=== PATIENT | male | born 1960 | race Hispanic/Latino ===

== ENCOUNTER 2018-04-22 20:46 | Observation (INO) | payer SELFPAY ==
[~2018-04-22] VITALS: Ht 154.9 cm; Wt 65.9 kg
[~2018-04-22 20:46] MED LIST: ASPIR 8181 MG PO
[2018-04-22 21:16] LABS: BASOPHILS % 0.4 % (0.0-1.0); EOSINOPHILS # (AUTO) 0.2 (0.0-0.4); EOSINOPHILS % 1.8 % (0.0-6.0); HEMATOCRIT 45.1 % (38.2-49.6); HEMOGLOBIN 15.4 g/dL (14.0-18.0); LYMPHOCYTES % 28.6 % (18.0-39.1); MEAN CORPUSCULAR HGB CONC 34.1 g/dL (31-35); MEAN CORPUSCULAR VOLUME 87.7 fL (81-99); MONOCYTES # (AUTO) 0.7 (0.2-0.8); MONOCYTES % 6.9 % (4.4-11.3); NEUTROPHILS # (AUTO) 6.4 (2.1-6.9); NEUTROPHILS % 61.9 % (38.7-80.0); PLATELET COUNT 338 x10e3/uL (140-360); RED BLOOD COUNT 5.14 x10e6/uL (4.3-5.7); RED CELL DISTRIBUTION WIDTH 11.9 % (11.7-14.4)
[2018-04-22] MEDS ORDERED: PLAVIX75 MG PO (21:21)
[2018-04-22 21:27] LABS: INR 0.9
[2018-04-22 21:28] LABS: PARTIAL THROMBOPLASTIN TIME 28.7 seconds (23.8-35.5)
[2018-04-22 21:38] LABS: ALANINE AMINOTRANSFERASE 64 IU/L (0-55); ALBUMIN/GLOBULIN RATIO 0.9 (0.8-2.0); ALKALINE PHOSPHATASE 116 IU/L (40-150); ANION GAP 10.8 mmol/L (8-16); BLOOD UREA NITROGEN 18 mg/dL (7-26); BUN/CREATININE RATIO 19 (6-25); CALCIUM 9.8 mg/dL (8.4-10.2); CARBON DIOXIDE 29 mmol/L (22-29); CHLORIDE 102 mmol/L (98-107); CREATINE KINASE 56 IU/L (30-200); CREATININE, SERUM 0.93 mg/dL (0.72-1.25); EST GLOMERULAR FILTRATION RATE > 60 ML/MIN (60-); GLUCOSE 117 mg/dL (74-118); MAGNESIUM 2.1 MG/DL (1.3-2.1); POTASSIUM 3.8 mmol/L (3.5-5.1); SODIUM 138 mmol/L (136-145)
[2018-04-22 21:39] LABS: BILIRUBIN,URINE NEGATIVE (NEGATIVE); CLARITY,URINE CLEAR (CLEAR); COLOR,URINE YELLOW (YELLOW); KETONES,URINE NEGATIVE (NEGATIVE); LEUKOCYTE ESTERASE ,URINE NEGATIVE (NEGATIVE); NITRITE,URINE NEGATIVE (NEGATIVE); PROTEIN,URINE DIPSTICK NEGATIVE (NEGATIVE); URINE UROBILINOGEN 0.2 mg/dL (0.2 - 1)
[2018-04-22 21:47] LABS: BACTERIA,URINE FEW /HPF; EPITHELIAL CELLS,URINE RARE /LPF; RBC,URINE 0-5 /HPF (0-5)
--- NOTE | 2018-04-22 21:53 | Diagnostic Imaging Report ---
EXAMINATION: CHEST SINGLE (PORTABLE) INDICATION: Chest pain COMPARISON: None FINDINGS: TUBES and LINES: None. LUNGS: Lungs are not well inflated. Lungs are clear. There is no evidence of pneumonia or pulmonary edema. PLEURA: No pleural effusion or pneumothorax. HEART AND MEDIASTINUM: The cardiomediastinal silhouette is unremarkable. BONES AND SOFT TISSUES: No acute osseous lesion. Soft tissues are unremarkable. UPPER ABDOMEN: No free air under the diaphragm. IMPRESSION: No acute thoracic abnormality. Signed by: Dr. Grzegorz Hubbard M.D. on 04/22/2018 9:50 PM
--- NOTE | 2018-04-22 21:59 | Diagnostic Imaging Report ---
Examination: CT head without contrast Clinical Indication: Headache. Technique: Transaxial noncontrast images from the skull base through the vertex were obtained. Sagittal and coronal reformatted images were done. Dose modulation, iterative reconstruction, and/or weight based adjustment of the mA/kV was utilized to reduce the radiation dose to as low as reasonably achievable. Comparison: None. Findings: Scalp: No abnormalities. Bones: Intact. No fractures. No blastic or lytic lesions. Brain sulci: Appropriate for patient's age. Ventricles: Normal in size and configuration. No hydrocephalus. Extra-axial space: No abnormalities. Parenchyma: Small chronic cortical based infarct of the right middle frontal gyrus. No masses, hemorrhage, or acute cortical based vascular insults. Suprasellar region: No abnormalities. Craniocervical junction: The foramen magnum is patent. No Chiari one malformation. Incidental findings: Atherosclerotic calcification of the cavernous and supraclinoid internal carotid arteries. Impression: 1. No acute intracranial abnormality. 2. 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 Signed by: Dr. Lillian Costa M.D. on 04/22/2018 9:56 PM
[2018-04-22 22:21] LABS: AMPHETAMINES SCREEN,URINE NEGATIVE (NEGATIVE); BENZODIAZEPINES SCREEN,URINE NEGATIVE (NEGATIVE); PHENCYCLIDINE SCREEN,URINE NEGATIVE (NEGATIVE)
[2018-04-23] VITALS (8 sets, daily range): BP systolic 120–159; BP diastolic 62–80
[2018-04-23] MEDS ORDERED: NITROGLYCERIN 0.4 MG SUBL SL PRN
[2018-04-23] MEDS ORDERED: ONDANSETRON HCL INJ 2 MG/ML VIAL IV PRN
[2018-04-23] MEDS: FAMOTIDINE 20 MG/2 ML VIAL IV SCH ×2 (00:20→12:08)
[2018-04-23 05:42] LABS: CREATINE KINASE 41 IU/L (30-200)
[2018-04-23 06:02] LABS: CHOL/HDL RATIO 4.2 (3.9-4.7)
[2018-04-23] MEDS: CHLORHEXIDINE GLUCONATE 0.12% SOLN 473 ML BTL MT SCH ×2 (09:38→16:38)
[2018-04-23] MEDS: ASPIRIN 81 MG ENTERIC COATED PO SCH (09:38)
[2018-04-23] MEDS: HYDROCODONE/APAP 10MG-325MG TAB PO PRN (12:43)
--- NOTE | 2018-04-23 14:00 | Consultation ---
DATE OF CONSULTATION: April 23, 2018 CARDIOLOGY CONSULTATION CONSULTING PHYSICIAN: Dr. Christiano Weeks. REASON FOR CONSULTATION: Chest pain. HISTORY OF PRESENT ILLNESS: Mr. Paul is a 57-year-old male who reports that he came in to the ER due to worsening left shoulder and also chest pain. He does have a pertinent past medical history of a recent CVA with left arm weakness, tenderness, and also left-sided facial numbness. He states that he resides in [place] and was here visiting family; however, his shoulder and chest pain got worse. He also does report history of CAD with coronary artery bypass graft, 4 vessels, about 8 years ago. He is a current smoker and also has hypertension. Denies shortness of breath, palpitations, fever, chills, dizziness, or syncope. Does still endorse left-sided chest pain and also shoulder pain at this point, rating it 5/10. REVIEW OF SYSTEMS: Negative except as mentioned above. PERTINENT PAST MEDICAL HISTORY: Coronary artery disease, status post 4-vessel coronary artery bypass graft 8 years ago, hypertension, recent CVA 3 months ago. SURGICAL HISTORY: Coronary artery bypass graft 8 years ago. SOCIAL HISTORY: Smoker. Endorses social alcohol intake; however, denies illicit drug use. FAMILY HISTORY: Noncontributory. PHYSICAL EXAMINATION VITAL SIGNS: Temperature 97.4, pulse 62, respiratory rate 18, blood pressure 136/75, oxygen saturation 100% on room air. GENERAL: Alert and oriented x 3, resting comfortably in bed, does not appear to be in any acute distress. Family member at the bedside. NECK: Supple. No JVD noted. LUNGS: Clear to auscultation throughout. No wheezing, rhonchi, or crackles. CARDIOVASCULAR: Regular rate and rhythm. Normal S1, S2. No murmurs or gallops. ABDOMEN: Soft, nontender. Normoactive bowel sounds. EXTREMITIES: Lower extremities, no edema, 2+ pedal pulses. CARDIOVASCULAR MEDICATION: Aspirin 81 mg p.o. daily. LABS: From 04/22/2018; WBC 10.38, hemoglobin 15.4, hematocrit 45.1. Sodium 138, potassium 3.8, BUN 18, creatinine was 0.93. AST 30, ALT 64. Creatine kinase 41, CK-MB 0.50, troponin 0.001. Triglycerides 85, cholesterol 104, LDL 62, and HDL 25. Chest x-ray with no acute thoracic abnormalities. CT of the brain with no acute intracranial abnormality, small chronic cortical based infarct in the right middle frontal gyrus. IMPRESSION 1. Recent right cerebrovascular accident with left-sided weakness. 2. Coronary artery disease with coronary artery bypass graft 8 years ago. 3. Atypical chest pain. 4. Left-sided shoulder pain. 5. Hypertension. 6. Smoker. 7. Gingivitis with reported blood-tinged sputum. RECOMMENDATIONS: Maintain on telemetry at this time. Acute coronary syndrome has been ruled out with serial cardiac enzymes; however, due to risk factors and also history of coronary artery bypass graft and a current smoker and presentation, we will order nuclear stress test for tomorrow. Echocardiogram ordered, awaiting review and recommendations. Continue the above-listed cardiac medications. Thank you, Dr. Weeks, for this consultation. We will continue to follow and monitor this patient very closely. Dictated by: Kayleen Gómez NP Job#: [id number] JUSTIN
[2018-04-23 16:39] LABS: CREATINE KINASE 43 IU/L (30-200)
[2018-04-24] VITALS (7 sets, daily range): BP systolic 126–138; BP diastolic 61–94
[2018-04-24] MEDS: FAMOTIDINE 20 MG/2 ML VIAL IV SCH ×3 (00:41→23:40)
[2018-04-24] MEDS ORDERED: REGADENOSON 0.4 MG/5 ML SYR IV ONE (07:22)
[2018-04-24] MEDS: CHLORHEXIDINE GLUCONATE 0.12% SOLN 473 ML BTL MT SCH ×2 (09:38→15:44)
[2018-04-24] MEDS: ASPIRIN 81 MG ENTERIC COATED PO SCH (13:20)
--- NOTE | 2018-04-24 14:19 | Progress Note ---
DATE: April 24, 2018 CARDIOLOGY PROGRESS NOTE SUBJECTIVE: The patient denies chest pain or shortness of breath. OBJECTIVE VITAL SIGNS: Temperature 98.1 degrees, pulse 54, respiratory rate 18, blood pressure 138/71, oxygen saturation 96% on room air. GENERAL: Awake, alert, in no acute distress. LUNGS: Clear to auscultation bilaterally. No wheezes or crackles. CARDIOVASCULAR: Normal rate, regular rhythm. No murmur. Normal S1, S2. ABDOMEN: Soft, nontender. EXTREMITIES: No edema. CARDIAC MEDICATIONS: Aspirin 81 mg p.o. daily. LABS: None today. TELEMETRY: Sinus bradycardia. IMPRESSION 1. Recent right cerebrovascular accident with left-sided weakness. 2. Coronary artery disease with coronary artery bypass graft 8 years prior. 3. Atypical chest pain. 4. Left-sided shoulder pain. 5. Hypertension. 6. Tobacco use. 7. Gingivitis with reported blood-tinged sputum. RECOMMENDATIONS: Monitor the patient on telemetry. The patient has ruled out for myocardial infarction with serial cardiac biomarkers. Given his risk factors, the patient performed pharmacologic nuclear stress test. Further recommendations pending review of images. Echocardiogram has been ordered. We will review the results. Continue the patient's home cardiac medications. Thank you for this consult. We will continue to follow. Job#: [id number]
--- NOTE | 2018-04-24 20:11 | Cardiology Report ---
REFERRING PHYSICIAN: AMBIKA RIOS MD DATE OF STUDY: April 24, 2018 NUCLEAR STRESS TEST PROCEDURE TITLE: Rest/stress single isotope SPECT imaging with exercise stress and gated SPECT imaging. INDICATION: Chest pain. DESCRIPTION OF PROCEDURE: Pharmacologic stress testing was performed with regadenoson per protocol. The rest heart rate was 50 beats per minute and increased to 96 beats per minute during the regadenoson infusion. The rest blood pressure was 130/80 mmHg and increased to 149/71 mmHg, which is a normal response. The patient did not develop any significant symptoms. The resting electrocardiogram demonstrated normal sinus rhythm with inferolateral T-wave abnormalities. There were no ST-segment changes consistent with myocardial ischemia. Myocardial perfusion imaging was performed at rest following the injection of 11 mCi of tetrofosmin. At peak pharmacologic effect, the patient was injected with 28.9 mCi of tetrofosmin. Gated post stress tomographic imaging was performed. FINDINGS: The overall quality of the study is fair. Left ventricular cavity is noted to be normal size on the rest and stress studies. SPECT images demonstrate a medium-sized severe perfusion defect in the mid to distal anterior wall on rest and stress images. Gated SPECT imaging reveals akinesis of the mid to distal anterior wall. The left ventricular ejection fraction was calculated to be 50%. IMPRESSION: 1. Inconclusive electrocardiogram Lexiscan stress test due to resting electrocardiogram abnormalities. 2. Myocardial perfusion imaging is abnormal. There is a medium-sized severe transmural scar in the mid to distal anterior wall. 3. Overall, left ventricular systolic function was normal with regional wall motion abnormalities as above. Job#: [id number]
[2018-04-24] MEDS: HYDROCODONE/APAP 10MG-325MG TAB PO PRN (22:01)
[2018-04-25] VITALS: BP 129/65
[2018-04-25 04:00] VITALS: BP 148/72
[2018-04-25 07:44] VITALS: BP 129/71
[2018-04-25 08:22] VITALS: BP 129/71
[2018-04-25] MEDS: ASPIRIN 81 MG ENTERIC COATED PO SCH (08:38)
[2018-04-25] MEDS: CHLORHEXIDINE GLUCONATE 0.12% SOLN 473 ML BTL MT SCH (08:38)
[2018-04-25] MEDS ORDERED: CLOPIDOGREL BISULFATE 75 MG TAB PO SCH (09:00)
--- NOTE | 2018-04-25 11:32 | Progress Note ---
DATE: April 25, 2018 CARDIOLOGY PROGRESS NOTE SUBJECTIVE: The patient denies chest pain or shortness of breath. However, the patient reports he needs to be discharged today because his brother last night. OBJECTIVE VITALS: Temperature 96 degrees, pulse 52, respiratory rate 20, blood pressure 129/71, oxygen saturation 97% on room air. GENERAL: Awake, alert, in no acute distress. LUNGS: Clear to auscultation bilaterally. No wheezes or crackles. CARDIOVASCULAR: Normal rate, regular rhythm. No murmur. Normal S1, S2. ABDOMEN: Soft, nontender. EXTREMITIES: No edema. CARDIAC MEDICATIONS 1. Plavix 75 mg p.o. daily. 2. Aspirin 81 mg p.o. q.a.m. LABS: None today. Nuclear stress test with abnormal myocardial perfusion. There was a medium-size severe transmural scar in the mid to distal anterior wall with akinesis of that segment. TELEMETRY: Sinus bradycardia. IMPRESSION 1. Recent cerebrovascular accident with left-sided weakness. 2. Coronary artery disease with coronary artery bypass graft 8 years prior. 3. Abnormal nuclear stress test. 4. Atypical chest pain. 5. Left-sided shoulder pain. 6. Hypertension. 7. Tobacco use. 8. Gingivitis with reported blood-tinged sputum. RECOMMENDATIONS: The patient ruled out for myocardial infarction with serial cardiac biomarkers. He is currently asymptomatic. Continue the patient on dual antiplatelet therapy. Given abnormal nuclear stress test, cardiac catheterization is indicated for further evaluation. However, the patient wishes to be discharged home today given the recent in his family. The patient understands that he is at risk for heart attack, heart failure, ventricular arrhythmia and if he has unrevascularized coronary artery disease, but he wishes to be discharged home to follow up for outpatient cardiac catheterization instead. Please have the patient follow up in the office in 2 weeks. Thank you for this consult. We will continue to follow. Job#: [id number]
--- OUTSIDE RECORDS SUMMARY | 2018-05-02 11:24 | XMS REPORT ---
[facility] Address Unknown Phone Unavailable Care Team Providers Care Manager Discovery Name Role Phone AMBIKA RIOS Unavailable Unavailable Problems This patient has no known problems. Allergies, Adverse Reactions, Alerts This patient has no known allergies or adverse reactions. Medications This patient has no known medications. Results Test Description Test Time Test Comments Text Results Atomic Results Result Comments CT BRAIN WO 2018-04-22 21:53:00 [place] [address] Patient Name: DEBRA NICHOLS MR #: [id number] : 1960 Age/Sex: 57/M Req #: [id number] [facility] Physician: Ordered by: LISE NAJERA MD Report #: [id number] Location: ER Room/Bed: Procedure: [id number] CT/CT BRAIN WO Exam Date: 04/22/18 Exam Time: 2120 REPORT STATUS: Signed Examination: CT head without contrast Clinical Indication: Headache. Technique: Transaxial noncontrast images from the skull base through the vertex were obtained. Sagittal and coronal reformatted images were done. Dose modulation, iterative reconstruction, and/or weight based adjustment of the mA/kV was utilized to reduce the radiation dose to as low as reasonably achievable. Comparison: None. Findings: Scalp: No abnormalities. Bones: Intact. No fractures. No blastic or lytic lesions. Brain sulci: Appropriate for patient's age. Ventricles: Normal in size and configuration. No hydrocephalus. Extra-axial space: No abnormalities. Parenchyma: Small chronic cortical based infarct of the right middle frontal gyrus. No masses, hemorrhage, or acute cortical based vascular insults. Suprasellar region: No abnormalities. Craniocervical junction: The foramen magnum is patent. No Chiari one malformation. Incidental findings: Atherosclerotic calcification of the cavernous and supraclinoid internal carotid arteries. Impression: 1. No acute intracranial abnormality. 2. 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 Signed by: Dr. Lillian Costa M.D. on 04/22/2018 9:56 PM Dictated By: LILLIAN BILLINGS MD 54 Transcribed By: BUZZ on 04/22/182155 COPY TO: LISE NAJERA MD CHEST SINGLE (PORTABLE) 2018-04-22 21:50:00 [place] [address] Patient Name: DEBRA NICHOLS MR #: [id number] : 1960 Age/Sex: 57/M Req #: [id number] Adm Physician: Ordered by: LISE NAJERA MD Report #: [id number] Location: ER Room/Bed: Procedure: [id number] DX/CHEST SINGLE (PORTABLE) Exam Date: 04/22/18 Exam Time: 2129 REPORT STATUS: Signed EXAMINATION: CHEST SINGLE (PORTABLE) INDICATION: Chest pain COMPARISON: None FINDINGS: TUBES and LINES: None. LUNGS: Lungs are not well inflated. Lungs are clear. There is no evidence of pneumonia or pulmonary edema. PLEURA: No pleural effusion or pneumothorax. HEART AND MEDIASTINUM: The cardiomediastinal silhouette is unremarkable. BONES AND SOFT TISSUES: No acute osseous lesion. Soft tissues are unremarkable. UPPER ABDOMEN: No free air under the diaphragm. IMPRESSION: No acute thoracic abnormality. Signed by: Dr. Grzegorz Hubbard M.D. on 04/22/2018 9:50 PM Dictated By: GRZEGORZ LEROY MD 48 Transcribed By: BUZZ on 04/22/182149 COPY TO: LISE NAJERA MD
--- NOTE | 2018-07-01 19:21 | Discharge Summary ---
DISCHARGE DIAGNOSES 1. Chest pain, rule out myocardial infarction. 2. History of right-sided cerebrovascular accident. 3. Hypertension. HISTORY OF PRESENT ILLNESS AND HOSPITAL COURSE: See hospital chart for full details. Patient is a 57-year-old gentleman, presented with chest pain that resolved spontaneously on its own where he was seen by Dr. Salgado's group where he had a stress test done and after the stress test, the patient was able to be discharged home and followup with Cardiology in 1 or 2 weeks. Please see hospital chart for full details. AMBIKA RIOS MD Job#: [id number] [place]
== END 2018-04-25 12:05 | disposition home or self-care (01) ==
LOC: ER 20:46 → ERHOLD 23:56 → MED/SURG2 04-23 00:36 → IMCU 04-24 08:42 → MED/SURG2 04-24 08:48 → IMCU 04-24 08:57
PROVIDERS: ADMIT Internal Medicine; ATTEND Internal Medicine
DX: R07.89 Other chest pain (principal); K05.00 Acute gingivitis, plaque induced; I10 Essential (primary) hypertension; I25.10 Atherosclerotic heart disease of native coronary artery without angina pectoris; Z95.1 Presence of aortocoronary bypass graft; I69.334 Monoplegia of upper limb following cerebral infarction affecting left non-dominant side; I69.392 Facial weakness following cerebral infarction; M25.512 Pain in left shoulder; F17.210 Nicotine dependence, cigarettes, uncomplicated
CPT/HCPCS: 36415 ×2; 70450; 71045; 78452; 80053; 80061; 80307; 81001; 82550 ×2; 82553 ×2; 83735; 84484 ×2; 85025; 85610; 85730; 93005; 93017; 93306; 96374; 99284; A9502; G0378 ×4; 90935